=== PATIENT | female | born 1940 | race Caucasian/White ===

== ENCOUNTER 2025-02-19 17:05 | Inpatient (IN) | payer OTHER, SELFPAY ==
[2025-02-19] MEDS ORDERED: Dextrose 50% Abboject 50 ML SYRINGE SLOW IVP PRN (18:11)
[2025-02-19] MEDS ORDERED: Glucagon 1 MG/ML KIT IM PRN (18:11)
[2025-02-19 18:15] VITALS: BMI 36.7
[2025-02-20 05:12] LABS: #Basophils 0.1 thou/uL (0.0-0.2); #Eosinophils 0.0 thou/uL (0.0-0.7); #Lymphocytes 2.3 thou/uL (1.20-3.40); #Monocytes 0.9 thou/uL (0.11-0.59); #Neutrophils 8.7 thou/uL (1.40-6.50); %Basophils 0.5 % (0.0-1.0); %Eosinophils 0.1 % (0.0-10.0); %Lymphocytes 19.3 % (21.0-51.0); %Monocytes 7.4 % (0.0-10.0); %Neutrophils 72.7 % (42.0-75.0); Hematocrit 39.1 % (36.0-47.0); Hemoglobin 12.7 g/dL (12.0-16.0); Mean Corpuscular Hemoglobin 29.8 pg (27.0-31.0); Mean Corpuscular Volume 91.9 fl (78.0-98.0); Platelet Count 342 10x3/uL (130-400); Red Blood Cell (RBC) Count 4.26 mill/uL (4.20-5.40); White Blood Cell (WBC) Count 12.0 10x3/uL (4.8-10.8)
[2025-02-20 05:23] LABS: ALT (SGPT) 31 U/L (Less than 34); AST (SGOT) 21 U/L (11-34); Albumin 2.8 g/dL (3.1-4.5); Alkaline Phosphatase 70 U/L (40-110); Anion Gap 16 mmol/L (10-20); BUN (Urea Nitrogen) 20 mg/dL (9.8-20.1); Bilirubin, Total 0.4 mg/dL (0.3-1.2); Calc. Creatinine Clearance 104 mL/min (70-130); Calcium 8.4 mg/dL (7.8-10.44); Carbon Dioxide 23 mmol/L (23-31); Chloride 104 mmol/L (98-107); Globulin 3.5 g/dL (2.4-3.5); Glucose 160 mg/dL (83-110); Potassium 3.7 mmol/L (3.5-5.1); Sodium 139 mmol/L (136-145)
[2025-02-20] MEDS: Acetaminophen 500 MG TAB PO PRN (12:01)
[2025-02-20] MEDS: Dexamethasone 4 MG TAB PO SCH (12:01)
[2025-02-20] MEDS: Losartan 25 MG TAB PO SCH (12:01)
[2025-02-20] MEDS: Gabapentin 100 MG CAP PO SCH (12:12)
[2025-02-20] MEDS: Enoxaparin 40 MG (0.4 mL) SYRINGE SC SCH (12:13)
[2025-02-20] MEDS: Aspirin 81 mg Enteric Coated Tablet PO SCH (12:13)
[2025-02-20] MEDS: cefTRIAXone\\ROCEPHIN 1 GM in Sodium Chloride 0.9% 100 ML IVPB SCH (15:11)
[2025-02-20] MEDS: Benzonatate 100 MG CAP PO SCH (15:11)
[2025-02-20] MEDS: Azithromycin 500 MG in Sodium Chloride 0.9% 250 ML 250 ML IVPB SCH (16:33)
[2025-02-21] MEDS: Pantoprazole 40 MG DR.TAB PO SCH (08:25)
[2025-02-21] MEDS: Losartan 25 MG TAB PO SCH (08:26)
[2025-02-21] MEDS: Cholecalciferol 1,000 UNITS (25 MCG) TAB PO SCH (08:26)
[2025-02-21] MEDS: Dexamethasone 4 MG TAB PO SCH (08:26)
[2025-02-23 07:53] LABS: #Basophils 0.1 thou/uL (0.0-0.2); #Eosinophils 0.0 thou/uL (0.0-0.7); #Lymphocytes 2.8 thou/uL (1.20-3.40); #Monocytes 0.7 thou/uL (0.11-0.59); #Neutrophils 9.7 thou/uL (1.40-6.50); %Basophils 0.4 % (0.0-1.0); %Eosinophils 0.3 % (0.0-10.0); %Lymphocytes 21.1 % (21.0-51.0); %Monocytes 5.0 % (0.0-10.0); %Neutrophils 73.2 % (42.0-75.0); Hematocrit 38.4 % (36.0-47.0); Hemoglobin 12.2 g/dL (12.0-16.0); Mean Corpuscular Hemoglobin 29.4 pg (27.0-31.0); Mean Corpuscular Volume 92.2 fl (78.0-98.0); Platelet Count 343 10x3/uL (130-400); Red Blood Cell (RBC) Count 4.16 mill/uL (4.20-5.40); White Blood Cell (WBC) Count 13.2 10x3/uL (4.8-10.8)
[2025-02-23 08:28] LABS: Anion Gap 14 mmol/L (10-20); BUN (Urea Nitrogen) 23 mg/dL (9.8-20.1); Calc. Creatinine Clearance 104 mL/min (70-130); Calcium 8.5 mg/dL (7.8-10.44); Carbon Dioxide 23 mmol/L (23-31); Chloride 105 mmol/L (98-107); Glucose 114 mg/dL (83-110); Potassium 3.9 mmol/L (3.5-5.1); Sodium 138 mmol/L (136-145)
[2025-02-24] MEDS: Losartan 50 MG TAB PO SCH (08:18)
[2025-02-24] MEDS: HYDROcodone/Acetaminophen 5/325 mg Tablet PO PRN (11:10)
[2025-02-24] MEDS: cefTRIAXone (ROCEPHIN) 1 GM VIAL ONE (16:05)
[2025-02-25] MEDS ORDERED: Lantiseptic Ointment 130 GM JAR TOP PRN (16:54)
[2025-02-25] MEDS: Lantiseptic Ointment 130 GM JAR TOP SCH (20:34)
[2025-02-28] MEDS: Acetaminophen 500 MG TAB PO PRN (13:52)
[2025-03-01] MEDS: Losartan 25 MG TAB PO SCH (08:10)
[2025-03-01] MEDS: HYDROcodone/Acetaminophen 5/325 mg Tablet PO SCH (17:18)
[2025-03-02 05:29] LABS: #Basophils 0.1 thou/uL (0.0-0.2); #Eosinophils 0.1 thou/uL (0.0-0.7); #Lymphocytes 2.7 thou/uL (1.20-3.40); #Monocytes 0.7 thou/uL (0.11-0.59); #Neutrophils 8.7 thou/uL (1.40-6.50); %Basophils 0.5 % (0.0-1.0); %Eosinophils 0.5 % (0.0-10.0); %Lymphocytes 22.0 % (21.0-51.0); %Monocytes 6.0 % (0.0-10.0); %Neutrophils 71.0 % (42.0-75.0); Hematocrit 34.6 % (36.0-47.0); Hemoglobin 11.1 g/dL (12.0-16.0); Mean Corpuscular Hemoglobin 30.2 pg (27.0-31.0); Mean Corpuscular Volume 94.2 fl (78.0-98.0); Platelet Count 306 10x3/uL (130-400); Red Blood Cell (RBC) Count 3.68 mill/uL (4.20-5.40); White Blood Cell (WBC) Count 12.3 10x3/uL (4.8-10.8)
[2025-03-02] MEDS: HYDROcodone/Acetaminophen 5/325 mg Tablet PO SCH (05:32)
[2025-03-03] MEDS: Pantoprazole 40 MG DR.TAB PO SCH (09:44)
[2025-03-03 15:30] VITALS: BMI 36.5
[2025-03-05] MEDS ORDERED: HYDROcodone/Acetaminophen 5/325 mg Tablet PO PRN (17:07)
[2025-03-06] MEDS ORDERED: Benzonatate 100 MG CAP PO PRN (10:13)
[2025-03-09 07:42] VITALS: BP 119/73; TEMP 98.2
== END 2025-03-09 10:33 | disposition home or self-care (01) | DRG 945 ==
LOC: MADMS 17:05
PROVIDERS: ADMIT Family Medicine; ATTEND Family Medicine
PROC: F07Z9ZZ Gait Training/Functional Ambulation Treatment (ICD-10-PCS; principal; 2025-02-19)
DX: R53.81 Other malaise (principal); J12.82 Pneumonia due to coronavirus disease 2019; J96.01 Acute respiratory failure with hypoxia; U07.1 COVID-19; R26.89 Other abnormalities of gait and mobility; S62.101A Fracture of unspecified carpal bone, right wrist, initial encounter for closed fracture; I10 Essential (primary) hypertension; G20.A1 Parkinson's disease without dyskinesia, without mention of fluctuations; W18.30XA Fall on same level, unspecified, initial encounter; I95.2 Hypotension due to drugs; E66.9 Obesity, unspecified; E11.40 Type 2 diabetes mellitus with diabetic neuropathy, unspecified; Z90.49 Acquired absence of other specified parts of digestive tract; Z99.81 Dependence on supplemental oxygen; Z88.8 Allergy status to other drugs, medicaments and biological substances; Z68.35 Body mass index [BMI] 35.0-35.9, adult
CPT/HCPCS: 36415; 36416; 71045; 80048; 80053; 85025; J0456; J0696; J1650; J1815; J7050; J8540; Q0162